=== PATIENT | male | born 2005 | race African-American/Black ===

== ENCOUNTER 2023-07-28 09:29 | Emergency (ER) | payer BC, SELFPAY ==
[2023-07-28 09:37] VITALS: BP 162/89; PULSE 95; RESP 16; O2SAT 98; BMI 37.2
[2023-07-28 09:40] VITALS: TEMP 36.1
--- NOTE | 2023-07-28 09:55 | XR_ITS ---
Patient: PRAMOD ROMAN Facility:?[facility] Patient ID:?[id number] Site Patient ID:?[id number]. Site :?[id number] Study:?XRay-Extremity Left 3 VIEWS-07/28/2023 10:24:00 AM Ordering Physician:CESAR Final Report: Indication: Injury Technique: Three views Comparison: None Findings/Impression: Bones: Alignment is normal. No fractures or bone lesions. Joint spaces: Moderate knee effusion. Soft tissues: Unremarkable. Dictated by Gareth Wan MD @ 07/28/2023 10:30:27 AM Signed by:?Gareth Wan MD @07/28/2023 10:30:27 AM (Electronic Signature)
--- NOTE | 2023-07-28 09:55 | ED.GENADULT ---
HPI - General Adult General Chief complaint: Extremity Pain/Injury, Lower Stated complaint: L knee injury Time Seen by Provider: 07/28/23 09:31 History of Present Illness HPI narrative: Patient is a 17-year-old black male from [place] attending college at [employer]. He was playing defense in a numeral basketball game last night and twisted his knee, heard a popping sensation. He has noticed some swelling around the knee and has had difficulty bearing weight. He has noticed that there was some fullness about the knee, he is otherwise fairly healthy. Does have a history of reactive airway disease for which she takes albuterol inhaler. Noted drug allergies. Patient does have crutches. Reports most of the discomfort in the anterior aspect of the knee. Feels like he is unable to fully extend the knee. Related Data Home Medications Medication Instructions Recorded Confirmed albuterol sulfate 90 mcg/actuation 2 inh inhalation Q4-6H PRN 07/28/23 07/28/23 breath activated powder inhaler Allergies Allergy/AdvReac Type Severity Reaction Status Date / Time No Known Drug Allergies Allergy Verified 07/28/23 09:37 Review of Systems Status of ROS: Reports: 6 or more systems reviewed and unremarkable except as noted in History and below PFSH PFSH Social History Smoking Status: Never smoker Do you use any of these nicotine containing products: None How often do you have a drink containing alcohol: never How often do you have six or more drinks on one occasion: Never AUDIT-C Alcohol total score: 0 Non-prescribed substance use: denies use service: No Exam Narrative: Exam Narrative: Objective: Patient's vital signs show elevated blood pressure, afebrile Alert orient x3 no distress pleasant young man Left knee shows some mild knee effusion. IMI able to do anterior posterior drawer without any laxity noted. Compared this to his opposite knee and appears similar. He does have swelling in the left knee over a make rendered this little less accurate presently. He reports his niece did not swell immediately. Lower extremity unremarkable limited to 20? from full extension, no open wounds noted Const: Vital Signs, click to edit/add: Vital Signs - 24 hr 07/28/23 09:37 07/28/23 09:40 Temperature 97.0 F L Pulse Rate [Pulse Oximeter] 95 Respiratory Rate 16 Blood Pressure [Ri ght Forearm] 162/89 H Pulse Oximetry 98 Oxygen Delivery Me thod Room Air Course Vital Signs Vital signs: Initial Vital Signs Pulse Rate 95 07/28/23 09:37 Pulse Rhythm Regular 07/28/23 09:37 Pulse Strength 3+ Normal 07/28/23 09:37 Respiratory Rate 16 07/28/23 09:37 Blood Pressure 162/89 H 07/28/23 09:37 Blood Pressure Mean 113 H 07/28/23 09:37 Blood Pressure Position Sitting 07/28/23 09:37 Pulse Oximetry 98 07/28/23 09:37 Oxygen Delivery Method Room Air 07/28/23 09:37 Vital Signs Pulse Rate 95 07/28/23 09:37 Respiratory Rate 16 07/28/23 09:37 Blood Pressure 162/89 H 07/28/23 09:37 Pulse Oximetry 98 07/28/23 09:37 Oxygen Delivery Method Room Air 07/28/23 09:37 Temperature 97.0 F L 07/28/23 09:40 Pulse Rate 95 07/28/23 09:37 Respiratory Rate 16 07/28/23 09:37 Blood Pressure 162/89 H 07/28/23 09:37 Pulse Oximetry 98 07/28/23 09:37 Oxygen Delivery Method Room Air 07/28/23 09:37 Medical Decision Making MDM Narrative Medical decision making narrative: 17-year-old 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 Will check an x-ray. Will likely need a knee immobilizer and Orthopedic follow-up in 2-3 days. Re-examination that time if he has any laxity then MRI scanning would be indicated to rule out ligamentous injury. He was comfortable this, crutches, knee immobilizer, icing, ibuprofen regularly. Would recommend recheck with Ortho and will make an appointment. Addendum 10:30 a.m.: The patient's x-ray shows some trace knee effusion, I do not see any obvious fractures. His kneecap appears to be on the sunrise view in place. Recommend knee immobilizer and follow up with Ortho in 3-5 days. Icing, ibuprofen. Nonweightbearing until ortho follow-up. Discharge Plan Discharge Clinical Impression: Left knee sprain Patient Disposition: Home w/ Parent or Adult Condition: Stable Additional Instructions: Nonweightbearing until orthopedic follow-up appointment, crutches, knee immobilizer, icing 5-10 minutes 5 times a day for the next 3-5 days, ibuprofen 608 100 mg 3 times a day for swelling and discomfort. Return to ED if problems or concerns. Follow up with her ortho appointment as directed. Activity Level: Light activity Discharge Diet: Regular Prescriptions: No Action albuterol sulfate 90 mcg/actuation aerosol powdr breath activated 2 inh inhalation Q4-6H PRN Stand Alone Forms: [employer] Info Instructions
== END 2023-07-28 10:54 | disposition home or self-care (01) ==
PROVIDERS: Emergency Provider Family Medicine
DX: S83.92XA Sprain of unspecified site of left knee, initial encounter (principal); Y93.67 Activity, basketball
CPT/HCPCS: 73562; 99283; 99284